=== PATIENT | male | born 1965 | race African-American/Black ===

== ENCOUNTER 2020-09-03 23:28 | Inpatient (IN) ==
[2020-09-04] MEDS ORDERED: SODIUM CHLORIDE 0.9% 1,000 ML IV STA ×2 (07:37→09:07)
[2020-09-04] MEDS ORDERED: ONDANSETRON 4 MG/2 ML VIAL IV STA (07:38)
[2020-09-04] MEDS ORDERED: PIPERACILLIN/TAZOBACTAM 3,375 MG in SODIUM CHLORIDE 0.9% 100 ML IV STA (07:38)
[2020-09-04] MEDS ORDERED: fentaNYL 100 MCG/2 ML VIAL IV STA (07:38)
[2020-09-04 07:55] LABS: Basophils % 0.1 % (0.0-0.8); Hematocrit 24.1 VOL% (42.0-52.0); Hemoglobin 7.9 GM/DL (14.0-18.0); Immature Granulocytes % 1.8 %; Immature Granulocytes Absolute 0.28 #; Lymphocytes # 0.9 10*3/uL (1.4-4.0); Mean Corpuscular HGB Conc 32.8 GM/DL (32-36); Mean Platelet Volume 10.8 FL (9.6-12.0); Monocytes % 10.1 % (1.7-12.7); NRBC # 0.07 10*3/uL; Platelet Count 265 T/CUMM (130-400); Red Blood Count 2.62 MC/CUMM (3.8-5.5); Red Cell Distribution Width 14.5 % (9.3-17.3); White Blood Count 15.7 T/CUMM (4-12)
[2020-09-04] MEDS ORDERED: MEROPENEM 1,000 MG in SODIUM CHLORIDE 0.9% 100 ML IV STA (08:14)
[2020-09-04] MEDS ORDERED: VANCOMYCIN INJ 1,500 MG in SODIUM CHLORIDE 0.9% 500 ML IV STA (08:14)
[2020-09-04] MEDS ORDERED: MEROPENEM 500 MG VIAL ONE (08:20)
[2020-09-04 08:21] LABS: Albumin 2.1 G/DL (3.4-5.0); Bilirubin,Total 0.5 MG/DL (0.2-1.0); Calcium 8.9 MG/DL (8.5-10.1); Osmolality,Calculated 292.5 MOS/KG (273-304); Total Protein 6.8 G/DL (6.4-8.3)
[2020-09-04 08:36] LABS: Hypochromasia 1+; Lymphocytes 6 % (20-55); Platelet Estimate Adequate; Segmented Neutrophils 85 % (50-85); Total Cells Counted 100
[2020-09-04] MEDS ORDERED: ALBUTEROL 2.5 MG/3 ML NEB RESP TX PRN (09:28)
[2020-09-04] MEDS ORDERED: ONDANSETRON 4 MG/2 ML VIAL IV PRN (09:28)
[2020-09-04] MEDS ORDERED: FAMOTIDINE 20 MG/2 ML VIAL IV SCH (09:30)
[2020-09-04] MEDS ORDERED: MIDAZOLAM 2 MG/2 ML VIAL ONE (09:41)
[2020-09-04] MEDS ORDERED: fentaNYL 100 MCG/2 ML VIAL ONE (09:42)
[2020-09-04 09:46] LABS: Bacteria,Urine Occasional /HPF (Few); Bilirubin,Urine Negative (Negative); Blood, Urine Small mg/dL (Negative); Glucose,Urine (UA) Negative (Negative); Ketones,Urine Negative (Negative); Nitrite,Urine Negative (Negative); Protein,Urine >=500 MG/DL; RBC,Urine 9 /HPF (0-4); Squamous Epithelial Cell,Urine Occasional /HPF (0-10); Urine Appearance CLOUDY (Clear); Urine Color Amber (Yellow); Urine Specific Gravity 1.019 (1.001-1.035); Urine Urobilinogen < 2.0 EU/DL (0.2-1.0); WBC,Urine 4 /HPF (0-6)
[2020-09-04] MEDS ORDERED: LACTATED RINGERS 1,000 ML IV SCH (10:00)
[2020-09-04] MEDS ORDERED: PHENYLEPHRINE 10 MG/1 ML VIAL IV ONE ×3 (10:16→11:06)
[2020-09-04] MEDS ORDERED: ePHEDrine 50 MG/ML VIAL ONE (10:24)
[2020-09-04] MEDS ORDERED: SUGAMMADEX 200 MG/2 ML VIAL IV ONE (10:45)
[2020-09-04 10:57] LABS: ABG Base Excess -9.5 MMOL/L (-2.5-2.5); ABG HCO3 16.7 MMOL/L (20-26); ABG Oxygen Saturation 99.9 % (95-100); ABG PCO2 38.6 MM HG (35-48); ABG PH 7.252 (7.35-7.45); ABG TCO2 16.3 MMOL/L (23-27); Glucose Heart Surgery 114 MG/DL (74-106); Hematocrit Heart Surgery 21.1 PERCENT (42-52); Hemoglobin Heart Surgery 6.7 G/DL (14.0-18.0); Potassium Heart/CVR 5.5 MMOL/L (3.5-5.1)
[2020-09-04] MEDS ORDERED: SODIUM CHLORIDE 0.9% 1,000 ML IV PRN (11:09)
[2020-09-04] MEDS ORDERED: ETOMIDATE 40 MG/20 ML VIAL IV ONE (11:41)
[2020-09-04] MEDS ORDERED: ROCURONIUM 50 MG/5 ML VIAL IV ONE ×2 (11:41→11:43)
[2020-09-04] MEDS ORDERED: SUCCINYLCHOLINE 200 MG/10 ML VIAL ONE (11:41)
[2020-09-04] MEDS ORDERED: LIDOCAINE 2% 5 ML VIAL ONE (11:41)
[2020-09-04] MEDS ORDERED: SEVOFLURANE 1 UNIT/15 MINUTE INH ONE (11:42)
[2020-09-04] MEDS ORDERED: PHENYLEPHRINE 1 MG/10 ML SYRINGE IV ONE (11:42)
[2020-09-04] MEDS ORDERED: SODIUM CHLORIDE 0.9% 1,000 ML IV ONE (11:42)
[2020-09-04] MEDS ORDERED: ONDANSETRON 4 MG/2 ML VIAL ONE (11:42)
[2020-09-04] MEDS ORDERED: PHENYLEPHRINE DRIP 40 MG/250 ML PREMIX IV ONE (12:14)
[2020-09-04] MEDS ORDERED: PHENYLEPHRINE DRIP 40 MG/250 ML PREMIX IV PRN (12:15)
[2020-09-04 12:20] LABS: ABG HCO3 16.3 MMOL/L (20-26); ABG Oxygen Saturation 99.8 % (95-100); ABG PH 7.231 (7.35-7.45); ABG TCO2 16.3 MMOL/L (23-27); Glucose Heart Surgery 115 MG/DL (74-106); Hematocrit Heart Surgery 19.4 PERCENT (42-52); Potassium Heart/CVR 5.3 MMOL/L (3.5-5.1)
[2020-09-04 12:21] LABS: Hemoglobin Heart Surgery 6.2 G/DL (14.0-18.0)
[2020-09-04] MEDS ORDERED: VANCOMYCIN INJ 1,250 MG in SODIUM CHLORIDE 0.9% 250 ML IV PRN (12:32)
[2020-09-04] MEDS ORDERED: SODIUM BICARBONATE 50 MEQ/50 ML VIAL IV ONE (13:05)
[2020-09-04] MEDS: FAMOTIDINE 20 MG/2 ML VIAL IV SCH (13:31)
[2020-09-04] MEDS: SODIUM BICARB INJ 150 MEQ in DEXTROSE 5% 850 ML IV SCH (14:17)
[2020-09-04] MEDS: MORPHINE 4 MG/1 ML VIAL IV PRN (20:25)
[2020-09-04 20:46] LABS: Calcium 7.7 MG/DL (8.5-10.1); Osmolality,Calculated 301.2 MOS/KG (273-304)
[2020-09-05] MEDS: SODIUM BICARB INJ 150 MEQ in DEXTROSE 5% 850 ML IV SCH ×2 (00:08→10:03)
[2020-09-05 04:18] LABS: ABG HCO3 20.3 MMOL/L (20-26); ABG Oxygen Saturation 99.6 % (95-100); ABG PCO2 30.9 MM HG (35-48); ABG PH 7.397 (7.35-7.45); ABG TCO2 17.5 MMOL/L (23-27)
[2020-09-05 04:19] LABS: Allen Test Positive; Pt O2 Delivery Device Ventilator
[2020-09-05 04:43] LABS: Basophils % 0.2 % (0.0-0.8); Eosinophils % 0.2 % (0.00-10.9); Hematocrit 23.8 VOL% (42.0-52.0); Hemoglobin 7.8 GM/DL (14.0-18.0); Immature Granulocytes % 0.7 %; Immature Granulocytes Absolute 0.09 #; Lymphocytes # 1.1 10*3/uL (1.4-4.0); Lymphocytes % 9.2 % (21.2-54.2); Mean Corpuscular HGB Conc 32.8 GM/DL (32-36); Mean Corpuscular Volume 90.2 FL (87-102); Mean Platelet Volume 11.5 FL (9.6-12.0); Monocytes % 9.9 % (1.7-12.7); NRBC # 0.12 10*3/uL; Neutrophils % 79.8 % (38.7-73.9); Platelet Count 226 T/CUMM (130-400); Red Blood Count 2.64 MC/CUMM (3.8-5.5); Red Cell Distribution Width 15.7 % (9.3-17.3); White Blood Count 12.1 T/CUMM (4-12)
[2020-09-05 05:00] LABS: Albumin 1.6 G/DL (3.4-5.0); Bilirubin,Total 0.7 MG/DL (0.2-1.0); Calcium 7.9 MG/DL (8.5-10.1); Osmolality,Calculated 302.2 MOS/KG (273-304); Total Protein 5.5 G/DL (6.4-8.3)
[2020-09-05 05:25] LABS: Band Neutrophils 5 % (0-10); Eosinophils 1 % (0-10); Hypochromasia 2+; Lymphocytes 10 % (20-55); Platelet Estimate Normal; Segmented Neutrophils 75 % (50-85); Total Cells Counted 100
[2020-09-05] MEDS: MEROPENEM 500 MG in SODIUM CHLORIDE 0.9% 100 ML IV SCH (09:50)
[2020-09-05] MEDS: FAMOTIDINE 20 MG/2 ML VIAL IV SCH (11:38)
[2020-09-05] MEDS: hydrALAZINE 20 MG/1 ML VIAL IV PRN (12:14)
[2020-09-05] MEDS ORDERED: DEXTROSE 50% 25 GM/50 ML VIAL IV PRN (12:31)
[2020-09-05] MEDS ORDERED: GLUCAGON 1 MG VIAL IM PRN (12:31)
[2020-09-05] MEDS: MORPHINE 4 MG/1 ML VIAL IV PRN ×2 (13:43→23:48)
[2020-09-05] MEDS ORDERED: MORPHINE 4 MG/1 ML VIAL IV ONE (13:47)
[2020-09-05] MEDS ORDERED: SODIUM HYPOCHLORITE 0.25% IRRIG 473 ML BOTTLE ONE (13:50)
[2020-09-05] MEDS: INSULIN REGULAR 100 UNIT/ML SUBCUT SCH ×2 (17:50→23:38)
[2020-09-05] MEDS: METOPROLOL TARTRATE 25 MG TABLET PO SCH (21:35)
[2020-09-06] MEDS: MORPHINE 4 MG/1 ML VIAL IV PRN ×4 (03:38→14:43)
[2020-09-06 04:47] LABS: ABG HCO3 23.6 MMOL/L (20-26); ABG Oxygen Saturation 96.4 % (95-100); ABG PH 7.415 (7.35-7.45); ABG TCO2 20.7 MMOL/L (23-27)
[2020-09-06 05:38] LABS: Basophils % 0.1 % (0.0-0.8); Eosinophils # 0.1 10*3/uL (0.0-0.87); Eosinophils % 0.8 % (0.00-10.9); Hematocrit 24.7 VOL% (42.0-52.0); Hemoglobin 8.4 GM/DL (14.0-18.0); Immature Granulocytes % 2.1 %; Immature Granulocytes Absolute 0.29 #; Lymphocytes # 1.2 10*3/uL (1.4-4.0); Lymphocytes % 8.7 % (21.2-54.2); NRBC # 0.09 10*3/uL; Neutrophils % 80.3 % (38.7-73.9); Platelet Count 289 T/CUMM (130-400); Red Blood Count 2.84 MC/CUMM (3.8-5.5); Red Cell Distribution Width 14.9 % (9.3-17.3); White Blood Count 13.8 T/CUMM (4-12)
[2020-09-06 05:52] LABS: Calcium 8.1 MG/DL (8.5-10.1)
[2020-09-06 05:58] LABS: Band Neutrophils 1 % (0-10); Hypochromasia 1+; Lymphocytes 8 % (20-55); Microcytosis 1+; Ovalocytes Slight; Platelet Estimate Adequate; Segmented Neutrophils 89 % (50-85); Total Cells Counted 100
[2020-09-06] MEDS: INSULIN REGULAR 100 UNIT/ML SUBCUT SCH ×3 (06:02→17:39)
[2020-09-06] MEDS: SODIUM BICARB INJ 150 MEQ in DEXTROSE 5% 850 ML IV SCH (06:39)
[2020-09-06] MEDS ORDERED: fentaNYL 100 MCG/2 ML VIAL ONE (08:01)
[2020-09-06] MEDS ORDERED: MIDAZOLAM 2 MG/2 ML VIAL ONE ×2 (08:01→09:32)
[2020-09-06] MEDS ORDERED: ROCURONIUM 50 MG/5 ML VIAL IV ONE (08:01)
[2020-09-06] MEDS: METOPROLOL TARTRATE 25 MG TABLET PO SCH ×2 (08:25→20:21)
[2020-09-06] MEDS: MEROPENEM 500 MG in SODIUM CHLORIDE 0.9% 100 ML IV SCH (08:25)
[2020-09-06] MEDS ORDERED: SEVOFLURANE 1 UNIT/15 MINUTE INH ONE (09:32)
[2020-09-06] MEDS: hydrALAZINE 20 MG/1 ML VIAL IV PRN (10:52)
[2020-09-06] MEDS ORDERED: VANCOMYCIN INJ 1,250 MG in SODIUM CHLORIDE 0.9% 250 ML IV ONE (11:00)
[2020-09-06] MEDS: FAMOTIDINE 20 MG/2 ML VIAL IV SCH (11:04)
[2020-09-06] MEDS: DEXT 5% NACL 0.45% KCL 20 MEQ 20 MEQ/1,000 ML BAG IV SCH (14:55)
[2020-09-07] MEDS: INSULIN REGULAR 100 UNIT/ML SUBCUT SCH ×4 (00:13→18:16)
[2020-09-07] MEDS: MORPHINE 4 MG/1 ML VIAL IV PRN ×2 (01:48→14:11)
[2020-09-07 04:24] LABS: Basophils % 0.2 % (0.0-0.8); Eosinophils # 0.1 10*3/uL (0.0-0.87); Eosinophils % 0.5 % (0.00-10.9); Hemoglobin 7.8 GM/DL (14.0-18.0); Immature Granulocytes % 4.3 %; Immature Granulocytes Absolute 0.77 #; Lymphocytes # 1.5 10*3/uL (1.4-4.0); Lymphocytes % 8.6 % (21.2-54.2); Mean Corpuscular HGB Conc 33.9 GM/DL (32-36); Mean Corpuscular Volume 87.5 FL (87-102); Mean Platelet Volume 10.9 FL (9.6-12.0); Monocytes % 7.7 % (1.7-12.7); NRBC # 0.11 10*3/uL; Neutrophils % 78.7 % (38.7-73.9); Platelet Count 286 T/CUMM (130-400); Red Blood Count 2.63 MC/CUMM (3.8-5.5); Red Cell Distribution Width 14.6 % (9.3-17.3); White Blood Count 17.9 T/CUMM (4-12)
[2020-09-07 04:26] LABS: ABG Base Excess -1.4 MMOL/L (-2.5-2.5); ABG HCO3 21.1 MMOL/L (20-26); ABG PCO2 29.9 MM HG (35-48); ABG PH 7.466 (7.35-7.45); ABG PO2 108.4 MM HG (80-95); Allen Test Positive; Pt O2 Delivery Device Ventilator
[2020-09-07 04:30] LABS: ABG Oxygen Saturation 98.3 % (95-100)
[2020-09-07 04:50] LABS: Albumin 1.3 G/DL (3.4-5.0); Calcium 8.2 MG/DL (8.5-10.1); Osmolality,Calculated 305.2 MOS/KG (273-304); Total Protein 5.4 G/DL (6.4-8.3)
[2020-09-07 04:58] LABS: Band Neutrophils 2 % (0-10); Lymphocytes 11 % (20-55); Nucleated Red Blood Cells 1 (0-5); Platelet Estimate Adequate; Segmented Neutrophils 80 % (50-85); Total Cells Counted 100
[2020-09-07 04:59] LABS: Hypochromasia 2+; Microcytosis 1+
[2020-09-07] MEDS: METOPROLOL TARTRATE 25 MG TABLET PO SCH ×2 (08:12→22:12)
[2020-09-07] MEDS: MEROPENEM 500 MG in SODIUM CHLORIDE 0.9% 100 ML IV SCH (08:12)
[2020-09-07] MEDS: DEXT 5% NACL 0.45% KCL 20 MEQ 20 MEQ/1,000 ML BAG IV SCH (11:13)
[2020-09-07] MEDS: DEXTROSE 5% NACL 0.45% 1,000 ML IV SCH (11:45)
[2020-09-07] MEDS: FAMOTIDINE 20 MG/2 ML VIAL IV SCH (12:03)
[2020-09-07] MEDS ORDERED: PNEUMOCOCCAL VACCINE (13 VALENT) 0.5 ML SYRINGE IM ONE (13:08)
[2020-09-08] MEDS: INSULIN REGULAR 100 UNIT/ML SUBCUT SCH ×5 (00:02→23:49)
[2020-09-08] MEDS: MORPHINE 4 MG/1 ML VIAL IV PRN ×2 (02:12→09:45)
[2020-09-08 04:42] LABS: Basophils % 0.2 % (0.0-0.8); Eosinophils # 0.2 10*3/uL (0.0-0.87); Eosinophils % 0.7 % (0.00-10.9); Hematocrit 22.1 VOL% (42.0-52.0); Hemoglobin 7.7 GM/DL (14.0-18.0); Immature Granulocytes % 8.7 %; Immature Granulocytes Absolute 1.75 #; Lymphocytes # 2.1 10*3/uL (1.4-4.0); Lymphocytes % 10.5 % (21.2-54.2); Mean Corpuscular HGB Conc 34.8 GM/DL (32-36); Mean Corpuscular Volume 90.9 FL (87-102); Mean Platelet Volume 11.3 FL (9.6-12.0); NRBC # 0.06 10*3/uL; Neutrophils % 72.9 % (38.7-73.9); Platelet Count 289 T/CUMM (130-400); Red Blood Count 2.43 MC/CUMM (3.8-5.5); Red Cell Distribution Width 14.8 % (9.3-17.3); White Blood Count 20.2 T/CUMM (4-12)
[2020-09-08 05:03] LABS: ABG Base Excess -2.3 MMOL/L (-2.5-2.5); ABG HCO3 22.5 MMOL/L (20-26); ABG Oxygen Saturation 98.2 % (95-100); ABG PCO2 37.6 MM HG (35-48); ABG PH 7.382 (7.35-7.45); ABG TCO2 20.3 MMOL/L (23-27); Allen Test Positive; Pt O2 Delivery Device Ventilator
[2020-09-08 05:05] LABS: Calcium 8.1 MG/DL (8.5-10.1)
[2020-09-08 05:54] LABS: Anisocytosis 2+; Band Neutrophils 17 % (0-10); Burr Cells 1+; Eosinophils 1 % (0-10); Lymphocytes 8 % (20-55); Myelocytes 2 %; Platelet Estimate Normal; Poikilocytosis 1+; Segmented Neutrophils 69 % (50-85); Smudge Cells Few; Total Cells Counted 100
[2020-09-08 05:55] LABS: Macrocytosis 1+
[2020-09-08] MEDS: MEROPENEM 500 MG in SODIUM CHLORIDE 0.9% 100 ML IV SCH (08:04)
[2020-09-08] MEDS: METOPROLOL TARTRATE 25 MG TABLET PO SCH ×2 (08:05→20:14)
[2020-09-08] MEDS: FAMOTIDINE 20 MG/2 ML VIAL IV SCH (12:20)
[2020-09-08] MEDS: hydrALAZINE 20 MG/1 ML VIAL IV PRN (13:20)
[2020-09-08] MEDS: DEXTROSE 5% NACL 0.45% 1,000 ML IV SCH (21:12)
[2020-09-09] MEDS: DEXTROSE 5% NACL 0.45% 1,000 ML IV SCH ×2 (00:34→11:53)
[2020-09-09 04:23] LABS: Basophils # 0.1 10*3/uL (0.0-0.2); Basophils % 0.3 % (0.0-0.8); Eosinophils # 0.2 10*3/uL (0.0-0.87); Hematocrit 26.6 VOL% (42.0-52.0); Hemoglobin 8.8 GM/DL (14.0-18.0); Immature Granulocytes % 11.3 %; Immature Granulocytes Absolute 2.09 #; Lymphocytes % 10.5 % (21.2-54.2); Mean Corpuscular HGB Conc 33.1 GM/DL (32-36); Mean Corpuscular Volume 90.5 FL (87-102); Mean Platelet Volume 10.2 FL (9.6-12.0); Monocytes % 7.9 % (1.7-12.7); NRBC # 0.02 10*3/uL; Platelet Count 301 T/CUMM (130-400); Red Blood Count 2.94 MC/CUMM (3.8-5.5); Red Cell Distribution Width 14.8 % (9.3-17.3); White Blood Count 18.5 T/CUMM (4-12)
[2020-09-09 04:43] LABS: Calcium 8.8 MG/DL (8.5-10.1)
[2020-09-09 04:57] LABS: Band Neutrophils 2 % (0-10); Lymphocytes 10 % (20-55); Metamyelocytes 1 %; Platelet Estimate Increased; Segmented Neutrophils 83 % (50-85); Total Cells Counted 100
[2020-09-09 04:58] LABS: Microcytosis Slight; Polychromasia Slight
[2020-09-09 05:04] LABS: ABG Base Excess -4.3 MMOL/L (-2.5-2.5); ABG HCO3 20.9 MMOL/L (20-26); ABG Oxygen Saturation 99.3 % (95-100); ABG PH 7.357 (7.35-7.45); ABG TCO2 19.4 MMOL/L (23-27); Allen Test Positive; Pt O2 Delivery Device Ventilator
[2020-09-09] MEDS: INSULIN REGULAR 100 UNIT/ML SUBCUT SCH ×3 (05:11→18:35)
[2020-09-09] MEDS: METOPROLOL TARTRATE 25 MG TABLET PO SCH ×2 (09:48→20:46)
[2020-09-09] MEDS: MEROPENEM 500 MG in SODIUM CHLORIDE 0.9% 100 ML IV SCH (10:05)
[2020-09-09] MEDS ORDERED: FUROSEMIDE 40 MG/4 ML VIAL IM ONE (12:27)
[2020-09-09] MEDS ORDERED: FUROSEMIDE 40 MG/4 ML VIAL IV ONE (12:55)
[2020-09-09] MEDS: FAMOTIDINE 20 MG/2 ML VIAL IV SCH (12:55)
[2020-09-09] MEDS: MORPHINE 4 MG/1 ML VIAL IV PRN ×2 (17:08→18:37)
[2020-09-09] MEDS: METOCLOPRAMIDE 10 MG/2 ML VIAL IV SCH (18:35)
[2020-09-10] MEDS: INSULIN REGULAR 100 UNIT/ML SUBCUT SCH ×4 (00:40→17:28)
[2020-09-10] MEDS: METOCLOPRAMIDE 10 MG/2 ML VIAL IV SCH ×4 (00:41→18:02)
[2020-09-10 04:23] LABS: Allen Test Positive; Pt O2 Delivery Device Ventilator
[2020-09-10 04:24] LABS: ABG HCO3 19.5 MMOL/L (20-26); ABG PCO2 34.3 MM HG (35-48); ABG TCO2 17.6 MMOL/L (23-27)
[2020-09-10 06:45] LABS: Basophils # 0.1 10*3/uL (0.0-0.2); Basophils % 0.2 % (0.0-0.8); Eosinophils % 0.2 % (0.00-10.9); Hematocrit 24.6 VOL% (42.0-52.0); Hemoglobin 8.3 GM/DL (14.0-18.0); Immature Granulocytes Absolute 1.61 #; Lymphocytes # 1.3 10*3/uL (1.4-4.0); Lymphocytes % 5.5 % (21.2-54.2); Mean Corpuscular HGB Conc 33.7 GM/DL (32-36); Mean Corpuscular Volume 88.5 FL (87-102); Monocytes % 3.2 % (1.7-12.7); NRBC # 0.02 10*3/uL; Neutrophils % 83.9 % (38.7-73.9); Platelet Count 330 T/CUMM (130-400); Red Blood Count 2.78 MC/CUMM (3.8-5.5); Red Cell Distribution Width 14.6 % (9.3-17.3); White Blood Count 22.9 T/CUMM (4-12)
[2020-09-10 07:00] LABS: Calcium 9.3 MG/DL (8.5-10.1); Osmolality,Calculated 312.2 MOS/KG (273-304)
[2020-09-10 07:05] LABS: Calcium 8.6 MG/DL (8.5-10.1); Osmolality,Calculated 317.1 MOS/KG (273-304)
[2020-09-10] MEDS ORDERED: ROPIVACAINE 0.5% 30 ML VIAL ONE (07:09)
[2020-09-10] MEDS: hydrALAZINE 20 MG/1 ML VIAL IV PRN ×2 (07:28→13:07)
[2020-09-10 07:30] LABS: Anisocytosis 2+; Band Neutrophils 1 % (0-10); Hypersegmented Neutrophil 1+; Lymphocytes 5 % (20-55); Macrocytosis 2+; Platelet Estimate Normal; Segmented Neutrophils 91 % (50-85); Total Cells Counted 100
[2020-09-10] MEDS ORDERED: LIDOCAINE 2% TOP JELLY 20 ML VIAL INTRAURETH ONE (08:07)
[2020-09-10] MEDS: MEROPENEM 500 MG in SODIUM CHLORIDE 0.9% 100 ML IV SCH (08:13)
[2020-09-10] MEDS ORDERED: MIDAZOLAM 2 MG/2 ML VIAL ONE (09:00)
[2020-09-10] MEDS ORDERED: fentaNYL 100 MCG/2 ML VIAL ONE (09:00)
[2020-09-10] MEDS ORDERED: ROCURONIUM 50 MG/5 ML VIAL IV ONE (09:33)
[2020-09-10] MEDS ORDERED: propofoL 200 MG/20 ML VIAL IV ONE (09:33)
[2020-09-10] MEDS ORDERED: SEVOFLURANE 1 UNIT/15 MINUTE INH ONE (10:17)
[2020-09-10] MEDS ORDERED: LIDOCAINE 2% 5 ML VIAL ONE (10:17)
[2020-09-10] MEDS: METOPROLOL TARTRATE 25 MG TABLET PO SCH ×3 (11:11→22:05)
[2020-09-10] MEDS: FAMOTIDINE 20 MG/2 ML VIAL IV SCH (11:29)
[2020-09-10] MEDS: MORPHINE 4 MG/1 ML VIAL IV PRN (12:53)
[2020-09-10] MEDS: fentaNYL INJ 1,250 MCG in SODIUM CHLORIDE 0.9% 225 ML IV PRN (12:54)
[2020-09-11] MEDS: INSULIN REGULAR 100 UNIT/ML SUBCUT SCH ×4 (00:13→17:22)
[2020-09-11] MEDS: METOCLOPRAMIDE 10 MG/2 ML VIAL IV SCH ×4 (00:20→21:06)
[2020-09-11] MEDS: fentaNYL INJ 1,250 MCG in SODIUM CHLORIDE 0.9% 225 ML IV PRN ×2 (01:45→15:30)
[2020-09-11 02:54] LABS: ABG Base Excess -6.7 MMOL/L (-2.5-2.5); ABG HCO3 18.5 MMOL/L (20-26); ABG Oxygen Saturation 97.3 % (95-100); ABG PCO2 35.9 MM HG (35-48); ABG PH 7.331 (7.35-7.45); ABG PO2 117.2 MM HG (80-95); ABG TCO2 19.6 MMOL/L (23-27); Allen Test Positive; Pt O2 Delivery Device Ventilator
[2020-09-11] MEDS ORDERED: BUPIVACAINE MPF 0.25% 30 ML VIAL ONE (06:11)
[2020-09-11] MEDS ORDERED: TISSUE ADHESIVE 1 EACH APPLICATOR TOP ONE (06:11)
[2020-09-11] MEDS ORDERED: HEPARIN 5,000 UNIT/1 ML VIAL ONE (06:11)
[2020-09-11] MEDS ORDERED: LIDOCAINE 1%/EPI INJ 20 ML VIAL ONE (06:11)
[2020-09-11] MEDS ORDERED: ROCURONIUM 50 MG/5 ML VIAL IV ONE (06:38)
[2020-09-11] MEDS ORDERED: MIDAZOLAM 2 MG/2 ML VIAL ONE (06:39)
[2020-09-11] MEDS: METOPROLOL TARTRATE 25 MG TABLET PO SCH ×2 (08:09→21:07)
[2020-09-11] MEDS: metroNIDAZOLE INJ 500 MG in PREMIX 1 EACH IV SCH ×2 (08:53→16:55)
[2020-09-11] MEDS: MEROPENEM 500 MG in SODIUM CHLORIDE 0.9% 100 ML IV SCH (08:53)
[2020-09-11 11:33] LABS: Hepatitis B Core IgM Quant < 0.05 Index; Hepatitis B Surface Ag Quant < 0.10 Index; Hepatitis B Surface Ag Result Negative (Negative); Hepatitis C Virus Ab Quant 0.03 Index; Hepatitis C Virus Ab Result Negative (Negative)
[2020-09-11] MEDS: FAMOTIDINE 20 MG/2 ML VIAL IV SCH (12:41)
[2020-09-11] MEDS ORDERED: HEPARIN 10,000 UNIT/10 ML VIAL IV SCH (13:30)
[2020-09-12] MEDS: INSULIN REGULAR 100 UNIT/ML SUBCUT SCH ×4 (00:55→17:34)
[2020-09-12] MEDS: metroNIDAZOLE INJ 500 MG in PREMIX 1 EACH IV SCH ×3 (00:56→17:41)
[2020-09-12 03:24] LABS: ABG Base Excess -6.2 MMOL/L (-2.5-2.5); ABG HCO3 19.5 MMOL/L (20-26); ABG PCO2 39.4 MM HG (35-48); ABG PH 7.313 (7.35-7.45); ABG PO2 145.3 MM HG (80-95); ABG TCO2 20.7 MMOL/L (23-27); Allen Test Positive; Pt O2 Delivery Device Ventilator
[2020-09-12 03:46] LABS: Basophils % 0.2 % (0.0-0.8); Eosinophils # 0.2 10*3/uL (0.0-0.87); Eosinophils % 0.9 % (0.00-10.9); Hematocrit 22.3 VOL% (42.0-52.0); Hemoglobin 7.4 GM/DL (14.0-18.0); Immature Granulocytes % 4.7 %; Immature Granulocytes Absolute 0.96 #; Lymphocytes # 1.9 10*3/uL (1.4-4.0); Lymphocytes % 9.4 % (21.2-54.2); Mean Corpuscular HGB Conc 33.2 GM/DL (32-36); Mean Corpuscular Volume 89.9 FL (87-102); Mean Platelet Volume 9.8 FL (9.6-12.0); Monocytes % 7.2 % (1.7-12.7); Neutrophils % 77.6 % (38.7-73.9); Platelet Count 328 T/CUMM (130-400); Red Blood Count 2.48 MC/CUMM (3.8-5.5); White Blood Count 20.2 T/CUMM (4-12)
[2020-09-12 03:56] LABS: Calcium 8.5 MG/DL (8.5-10.1)
[2020-09-12 04:17] LABS: Band Neutrophils 3 % (0-10); Eosinophils 1 % (0-10); Lymphocytes 7 % (20-55); Microcytosis 1+; Platelet Estimate Adequate; Segmented Neutrophils 83 % (50-85); Total Cells Counted 100
[2020-09-12 04:18] LABS: Hypochromasia 1+
[2020-09-12] MEDS: METOCLOPRAMIDE 10 MG/2 ML VIAL IV SCH ×3 (06:17→22:29)
[2020-09-12] MEDS: fentaNYL INJ 1,250 MCG in SODIUM CHLORIDE 0.9% 225 ML IV PRN (06:30)
[2020-09-12] MEDS: METOPROLOL TARTRATE 25 MG TABLET PO SCH ×2 (09:00→21:02)
[2020-09-12] MEDS: MEROPENEM 500 MG in SODIUM CHLORIDE 0.9% 100 ML IV SCH (09:00)
[2020-09-12] MEDS: MORPHINE 4 MG/1 ML VIAL IV PRN ×4 (09:02→21:21)
[2020-09-12] MEDS: FAMOTIDINE 20 MG/2 ML VIAL IV SCH (12:03)
[2020-09-12] MEDS: hydrALAZINE 20 MG/1 ML VIAL IV PRN ×2 (12:03→18:07)
[2020-09-12] MEDS: HALOPERIDOL 5 MG/ML AMP IM PRN ×2 (17:27→22:31)
[2020-09-12] MEDS: MUPIROCIN 2% OINT 22 GM TUBE TOP SCH ×2 (17:27→21:03)
[2020-09-13] MEDS: INSULIN REGULAR 100 UNIT/ML SUBCUT SCH ×4 (00:02→18:27)
[2020-09-13] MEDS: metroNIDAZOLE INJ 500 MG in PREMIX 1 EACH IV SCH ×3 (00:16→16:36)
[2020-09-13] MEDS: MORPHINE 4 MG/1 ML VIAL IV PRN ×3 (00:17→14:29)
[2020-09-13] MEDS: MUPIROCIN 2% OINT 22 GM TUBE TOP SCH ×4 (04:15→21:28)
[2020-09-13 04:44] LABS: ABG Base Excess -5.7 MMOL/L (-2.5-2.5); ABG Oxygen Saturation 96.4 % (95-100); ABG PCO2 39.8 MM HG (35-48); ABG PH 7.318 (7.35-7.45); ABG PO2 99.9 MM HG (80-95); ABG TCO2 21.2 MMOL/L (23-27); Allen Test Positive
[2020-09-13] MEDS: hydrALAZINE 20 MG/1 ML VIAL IV PRN ×4 (05:12→16:32)
[2020-09-13] MEDS: METOCLOPRAMIDE 10 MG/2 ML VIAL IV SCH ×3 (05:15→21:38)
[2020-09-13 06:22] LABS: Basophils # 0.1 10*3/uL (0.0-0.2); Basophils % 0.3 % (0.0-0.8); Eosinophils # 0.2 10*3/uL (0.0-0.87); Eosinophils % 0.5 % (0.00-10.9); Hematocrit 25.6 VOL% (42.0-52.0); Hemoglobin 8.5 GM/DL (14.0-18.0); Immature Granulocytes % 4.8 %; Immature Granulocytes Absolute 1.38 #; Lymphocytes # 1.4 10*3/uL (1.4-4.0); Lymphocytes % 4.9 % (21.2-54.2); Mean Corpuscular HGB Conc 33.2 GM/DL (32-36); Mean Corpuscular Volume 89.5 FL (87-102); Mean Platelet Volume 9.7 FL (9.6-12.0); Monocytes % 6.5 % (1.7-12.7); Platelet Count 372 T/CUMM (130-400); Red Blood Count 2.86 MC/CUMM (3.8-5.5); Red Cell Distribution Width 14.7 % (9.3-17.3); White Blood Count 28.5 T/CUMM (4-12)
[2020-09-13 07:02] LABS: Anisocytosis 2+; Band Neutrophils 4 % (0-10); Hypersegmented Neutrophil Few; Lymphocytes 3 % (20-55); Metamyelocytes 2 %; Platelet Estimate Normal; Segmented Neutrophils 83 % (50-85); Total Cells Counted 100
[2020-09-13 07:03] LABS: Poikilocytosis Slight; Spherocytes Few
[2020-09-13 07:32] LABS: Calcium 9.2 MG/DL (8.5-10.1)
[2020-09-13 08:37] LABS: Osmolality,Calculated 307.1 MOS/KG (273-304)
[2020-09-13] MEDS: MEROPENEM 500 MG in SODIUM CHLORIDE 0.9% 100 ML IV SCH (09:22)
[2020-09-13] MEDS: METOPROLOL TARTRATE 25 MG TABLET PO SCH ×2 (09:28→21:27)
[2020-09-13] MEDS: cloNIDine 0.3 MG/24 HR PATCH TRANSDERM SCH (11:26)
[2020-09-13] MEDS: FAMOTIDINE 20 MG/2 ML VIAL IV SCH (12:39)
[2020-09-13] MEDS: ALBUTEROL 2.5 MG/3 ML NEB RESP TX SCH ×2 (13:20→19:37)
[2020-09-13] MEDS ORDERED: LABETALOL 20 MG/4 ML SYRINGE IV ONE ×2 (20:12→20:55)
[2020-09-14] MEDS: INSULIN REGULAR 100 UNIT/ML SUBCUT SCH ×4 (00:15→17:25)
[2020-09-14] MEDS: ALBUTEROL 2.5 MG/3 ML NEB RESP TX SCH ×4 (00:58→19:07)
[2020-09-14] MEDS: metroNIDAZOLE INJ 500 MG in PREMIX 1 EACH IV SCH ×3 (02:27→16:40)
[2020-09-14] MEDS: LABETALOL 20 MG/4 ML SYRINGE IV PRN ×2 (02:28→18:10)
[2020-09-14] MEDS ORDERED: LABETALOL 20 MG/4 ML SYRINGE IV ONE (05:38)
[2020-09-14] MEDS: METOCLOPRAMIDE 10 MG/2 ML VIAL IV SCH ×3 (06:05→22:37)
[2020-09-14] MEDS: MORPHINE 4 MG/1 ML VIAL IV PRN ×2 (06:07→17:15)
[2020-09-14 06:36] LABS: Basophils # 0.1 10*3/uL (0.0-0.2); Basophils % 0.3 % (0.0-0.8); Eosinophils # 0.1 10*3/uL (0.0-0.87); Eosinophils % 0.5 % (0.00-10.9); Hematocrit 25.6 VOL% (42.0-52.0); Hemoglobin 8.4 GM/DL (14.0-18.0); Immature Granulocytes % 2.9 %; Immature Granulocytes Absolute 0.64 #; Lymphocytes # 1.3 10*3/uL (1.4-4.0); Lymphocytes % 5.6 % (21.2-54.2); Mean Corpuscular HGB Conc 32.8 GM/DL (32-36); Mean Corpuscular Volume 90.8 FL (87-102); Monocytes % 5.7 % (1.7-12.7); Platelet Count 395 T/CUMM (130-400); Red Blood Count 2.82 MC/CUMM (3.8-5.5); Red Cell Distribution Width 14.8 % (9.3-17.3); White Blood Count 22.5 T/CUMM (4-12)
[2020-09-14 06:56] LABS: Calcium 9.5 MG/DL (8.5-10.1); Osmolality,Calculated 322.5 MOS/KG (273-304)
[2020-09-14] MEDS ORDERED: niCARdipine INJ 50 MG in SODIUM CHLORIDE 0.9% 230 ML IV PRN (09:13)
[2020-09-14] MEDS: MUPIROCIN 2% OINT 22 GM TUBE TOP SCH ×2 (09:50→21:11)
[2020-09-14] MEDS: METOPROLOL TARTRATE 25 MG TABLET PO SCH ×2 (09:50→21:11)
[2020-09-14] MEDS: MEROPENEM 500 MG in SODIUM CHLORIDE 0.9% 100 ML IV SCH (09:53)
[2020-09-14] MEDS: FAMOTIDINE 20 MG/2 ML VIAL IV SCH (12:30)
[2020-09-14] MEDS: HALOPERIDOL 5 MG/ML AMP IM PRN (15:54)
[2020-09-15] MEDS: INSULIN REGULAR 100 UNIT/ML SUBCUT SCH ×5 (00:20→23:41)
[2020-09-15] MEDS: metroNIDAZOLE INJ 500 MG in PREMIX 1 EACH IV SCH ×3 (01:02→16:48)
[2020-09-15] MEDS: MORPHINE 4 MG/1 ML VIAL IV PRN (01:03)
[2020-09-15] MEDS: MUPIROCIN 2% OINT 22 GM TUBE TOP SCH ×3 (01:22→20:46)
[2020-09-15] MEDS: ALBUTEROL 2.5 MG/3 ML NEB RESP TX SCH ×4 (01:42→19:20)
[2020-09-15 04:20] LABS: Basophils # 0.1 10*3/uL (0.0-0.2); Basophils % 0.4 % (0.0-0.8); Eosinophils # 0.2 10*3/uL (0.0-0.87); Eosinophils % 1.1 % (0.00-10.9); Hematocrit 25.9 VOL% (42.0-52.0); Hemoglobin 8.5 GM/DL (14.0-18.0); Immature Granulocytes % 1.3 %; Lymphocytes # 1.1 10*3/uL (1.4-4.0); Lymphocytes % 7.2 % (21.2-54.2); Mean Corpuscular HGB Conc 32.8 GM/DL (32-36); Mean Corpuscular Volume 89.3 FL (87-102); Mean Platelet Volume 10.2 FL (9.6-12.0); Monocytes % 8.7 % (1.7-12.7); Neutrophils % 81.3 % (38.7-73.9); Platelet Count 396 T/CUMM (130-400); Red Cell Distribution Width 14.5 % (9.3-17.3); White Blood Count 15.2 T/CUMM (4-12)
[2020-09-15 04:43] LABS: Calcium 8.8 MG/DL (8.5-10.1); Osmolality,Calculated 301.5 MOS/KG (273-304)
[2020-09-15] MEDS: METOCLOPRAMIDE 10 MG/2 ML VIAL IV SCH ×3 (06:00→22:05)
[2020-09-15] MEDS: METOPROLOL TARTRATE 25 MG TABLET PO SCH ×2 (08:16→20:38)
[2020-09-15] MEDS: MEROPENEM 500 MG in SODIUM CHLORIDE 0.9% 100 ML IV SCH (09:20)
[2020-09-15] MEDS: FAMOTIDINE 20 MG/2 ML VIAL IV SCH (11:59)
[2020-09-15] MEDS: LORazepam 2 MG/1 ML VIAL IV PRN ×2 (14:04→17:01)
[2020-09-15] MEDS: hydrALAZINE 20 MG/1 ML VIAL IV PRN (22:06)
[2020-09-16] MEDS: hydrALAZINE 20 MG/1 ML VIAL IV PRN ×3 (00:23→18:05)
[2020-09-16] MEDS: metroNIDAZOLE INJ 500 MG in PREMIX 1 EACH IV SCH ×3 (00:24→18:05)
[2020-09-16] MEDS: ALBUTEROL 2.5 MG/3 ML NEB RESP TX SCH ×4 (00:50→19:35)
[2020-09-16 04:15] LABS: Basophils # 0.1 10*3/uL (0.0-0.2); Basophils % 0.4 % (0.0-0.8); Eosinophils # 0.3 10*3/uL (0.0-0.87); Eosinophils % 1.6 % (0.00-10.9); Hematocrit 25.3 VOL% (42.0-52.0); Hemoglobin 8.4 GM/DL (14.0-18.0); Immature Granulocytes % 1.4 %; Immature Granulocytes Absolute 0.26 #; Lymphocytes # 1.5 10*3/uL (1.4-4.0); Lymphocytes % 8.2 % (21.2-54.2); Mean Corpuscular HGB Conc 33.2 GM/DL (32-36); Mean Corpuscular Volume 88.8 FL (87-102); Mean Platelet Volume 9.6 FL (9.6-12.0); Monocytes % 10.6 % (1.7-12.7); Neutrophils % 77.8 % (38.7-73.9); Platelet Count 399 T/CUMM (130-400); Red Blood Count 2.85 MC/CUMM (3.8-5.5); Red Cell Distribution Width 14.3 % (9.3-17.3); White Blood Count 18.3 T/CUMM (4-12)
[2020-09-16 04:34] LABS: Band Neutrophils 1 % (0-10); Eosinophils 1 % (0-10); Hypochromasia 1+; Lymphocytes 6 % (20-55); Microcytosis 1+; Platelet Estimate Adequate; Segmented Neutrophils 85 % (50-85); Total Cells Counted 100
[2020-09-16 04:37] LABS: Albumin 1.9 G/DL (3.4-5.0); Bilirubin,Total 0.5 MG/DL (0.2-1.0); Calcium 8.4 MG/DL (8.5-10.1); Osmolality,Calculated 314.5 MOS/KG (273-304); Total Protein 6.7 G/DL (6.4-8.3)
[2020-09-16] MEDS: INSULIN REGULAR 100 UNIT/ML SUBCUT SCH ×3 (06:06→18:08)
[2020-09-16] MEDS: METOCLOPRAMIDE 10 MG/2 ML VIAL IV SCH ×3 (06:06→22:09)
[2020-09-16] MEDS: METOPROLOL TARTRATE 25 MG TABLET PO SCH ×2 (09:04→20:23)
[2020-09-16] MEDS: MEROPENEM 500 MG in SODIUM CHLORIDE 0.9% 100 ML IV SCH (12:51)
[2020-09-16] MEDS: FAMOTIDINE 20 MG/2 ML VIAL IV SCH (12:54)
[2020-09-16] MEDS: MUPIROCIN 2% OINT 22 GM TUBE TOP SCH ×2 (13:30→20:24)
[2020-09-17] MEDS: INSULIN REGULAR 100 UNIT/ML SUBCUT SCH ×5 (00:32→23:54)
[2020-09-17] MEDS: metroNIDAZOLE INJ 500 MG in PREMIX 1 EACH IV SCH ×2 (01:19→10:07)
[2020-09-17] MEDS: ALBUTEROL 2.5 MG/3 ML NEB RESP TX SCH ×4 (01:49→19:31)
[2020-09-17] MEDS: hydrALAZINE 20 MG/1 ML VIAL IV PRN ×2 (03:11→17:00)
[2020-09-17] MEDS: METOCLOPRAMIDE 10 MG/2 ML VIAL IV SCH ×3 (06:08→22:53)
[2020-09-17 06:40] LABS: Basophils # 0.1 10*3/uL (0.0-0.2); Basophils % 0.4 % (0.0-0.8); Eosinophils # 0.3 10*3/uL (0.0-0.87); Eosinophils % 1.6 % (0.00-10.9); Hematocrit 24.7 VOL% (42.0-52.0); Hemoglobin 8.2 GM/DL (14.0-18.0); Immature Granulocytes % 1.3 %; Immature Granulocytes Absolute 0.24 #; Lymphocytes # 1.8 10*3/uL (1.4-4.0); Lymphocytes % 9.7 % (21.2-54.2); Mean Corpuscular HGB Conc 33.2 GM/DL (32-36); Mean Corpuscular Volume 89.2 FL (87-102); Mean Platelet Volume 10.1 FL (9.6-12.0); Platelet Count 439 T/CUMM (130-400); Red Blood Count 2.77 MC/CUMM (3.8-5.5); Red Cell Distribution Width 14.1 % (9.3-17.3)
[2020-09-17 07:01] LABS: Hypochromasia 1+; Microcytosis 1+; Ovalocytes Slight; Platelet Estimate Adequate
[2020-09-17 07:03] LABS: Albumin 1.9 G/DL (3.4-5.0); Bilirubin,Total 0.8 MG/DL (0.2-1.0); Calcium 8.6 MG/DL (8.5-10.1); Osmolality,Calculated 321.5 MOS/KG (273-304); Total Protein 6.9 G/DL (6.4-8.3)
[2020-09-17] MEDS: MUPIROCIN 2% OINT 22 GM TUBE TOP SCH ×2 (10:06→22:53)
[2020-09-17] MEDS: METOPROLOL TARTRATE 25 MG TABLET PO SCH ×2 (10:07→23:01)
[2020-09-17] MEDS: MORPHINE 4 MG/1 ML VIAL IV PRN ×2 (11:50→15:39)
[2020-09-17] MEDS: FAMOTIDINE 20 MG/2 ML VIAL IV SCH (12:50)
[2020-09-17] MEDS: MEROPENEM 500 MG in SODIUM CHLORIDE 0.9% 100 ML IV SCH (12:51)
[2020-09-17] MEDS: LABETALOL 20 MG/4 ML SYRINGE IV PRN (15:39)
[2020-09-17] MEDS ORDERED: niCARdipine INJ 25 MG in SODIUM CHLORIDE 0.9% 240 ML IV PRN (16:12)
[2020-09-18] MEDS: hydrALAZINE 20 MG/1 ML VIAL IV PRN (00:49)
[2020-09-18] MEDS: ALBUTEROL 2.5 MG/3 ML NEB RESP TX SCH ×4 (01:34→19:24)
[2020-09-18] MEDS: INSULIN REGULAR 100 UNIT/ML SUBCUT SCH ×3 (05:10→20:18)
[2020-09-18] MEDS: METOCLOPRAMIDE 10 MG/2 ML VIAL IV SCH ×3 (06:16→21:11)
[2020-09-18 06:34] LABS: Basophils # 0.1 10*3/uL (0.0-0.2); Basophils % 0.5 % (0.0-0.8); Eosinophils # 0.3 10*3/uL (0.0-0.87); Eosinophils % 1.9 % (0.00-10.9); Hematocrit 26.6 VOL% (42.0-52.0); Hemoglobin 8.7 GM/DL (14.0-18.0); Immature Granulocytes % 1.1 %; Immature Granulocytes Absolute 0.19 #; Lymphocytes # 1.5 10*3/uL (1.4-4.0); Lymphocytes % 8.7 % (21.2-54.2); Mean Corpuscular HGB Conc 32.7 GM/DL (32-36); Mean Corpuscular Volume 88.7 FL (87-102); Mean Platelet Volume 9.6 FL (9.6-12.0); Monocytes % 8.3 % (1.7-12.7); Neutrophils % 79.5 % (38.7-73.9); Platelet Count 417 T/CUMM (130-400); Red Cell Distribution Width 14.1 % (9.3-17.3); White Blood Count 17.3 T/CUMM (4-12)
[2020-09-18 06:52] LABS: Eosinophils 3 % (0-10); Hypochromasia 1+; Lymphocytes 11 % (20-55); Microcytosis Slight; Platelet Estimate Adequate; Segmented Neutrophils 78 % (50-85); Total Cells Counted 100
[2020-09-18 07:06] LABS: Bilirubin,Total 0.5 MG/DL (0.2-1.0); Calcium 8.3 MG/DL (8.5-10.1); Osmolality,Calculated 292.2 MOS/KG (273-304); Total Protein 7.1 G/DL (6.4-8.3)
[2020-09-18] MEDS: METOPROLOL TARTRATE 25 MG TABLET PO SCH ×2 (08:17→21:10)
[2020-09-18] MEDS: MUPIROCIN 2% OINT 22 GM TUBE TOP SCH ×2 (08:18→21:10)
[2020-09-18] MEDS: amLODIPine 10 MG TABLET PO SCH (09:00)
[2020-09-18] MEDS: FAMOTIDINE 20 MG/2 ML VIAL IV SCH (12:59)
[2020-09-18] MEDS: MEROPENEM 500 MG in SODIUM CHLORIDE 0.9% 100 ML IV SCH (12:59)
[2020-09-19] MEDS: ALBUTEROL 2.5 MG/3 ML NEB RESP TX SCH ×4 (00:37→18:58)
[2020-09-19] MEDS: INSULIN REGULAR 100 UNIT/ML SUBCUT SCH ×4 (00:48→18:24)
[2020-09-19 05:41] LABS: Basophils # 0.1 10*3/uL (0.0-0.2); Basophils % 0.4 % (0.0-0.8); Eosinophils # 0.3 10*3/uL (0.0-0.87); Hematocrit 24.7 VOL% (42.0-52.0); Hemoglobin 8.2 GM/DL (14.0-18.0); Immature Granulocytes % 0.8 %; Immature Granulocytes Absolute 0.13 #; Lymphocytes # 1.9 10*3/uL (1.4-4.0); Lymphocytes % 11.5 % (21.2-54.2); Mean Corpuscular HGB Conc 33.2 GM/DL (32-36); Mean Corpuscular Volume 88.8 FL (87-102); Mean Platelet Volume 10.2 FL (9.6-12.0); Neutrophils % 76.3 % (38.7-73.9); Platelet Count 412 T/CUMM (130-400); Red Blood Count 2.78 MC/CUMM (3.8-5.5); Red Cell Distribution Width 13.9 % (9.3-17.3); White Blood Count 16.6 T/CUMM (4-12)
[2020-09-19] MEDS: METOCLOPRAMIDE 10 MG/2 ML VIAL IV SCH ×3 (06:00→22:02)
[2020-09-19] MEDS: MORPHINE 4 MG/1 ML VIAL IV PRN ×3 (06:02→17:27)
[2020-09-19 06:28] LABS: Calcium 8.2 MG/DL (8.5-10.1); Osmolality,Calculated 296.1 MOS/KG (273-304)
[2020-09-19] MEDS ORDERED: SUCCINYLCHOLINE 200 MG/10 ML VIAL ONE (06:47)
[2020-09-19] MEDS ORDERED: ROCURONIUM 50 MG/5 ML VIAL IV ONE (06:47)
[2020-09-19] MEDS ORDERED: ETOMIDATE 40 MG/20 ML VIAL IV ONE (06:47)
[2020-09-19] MEDS ORDERED: fentaNYL 100 MCG/2 ML VIAL ONE ×2 (06:48→08:02)
[2020-09-19] MEDS ORDERED: LIDOCAINE 2% 5 ML VIAL ONE (07:26)
[2020-09-19] MEDS ORDERED: ONDANSETRON 4 MG/2 ML VIAL ONE (07:26)
[2020-09-19] MEDS ORDERED: METOPROLOL TARTRATE 5 MG/5 ML VIAL IV ONE (08:14)
[2020-09-19] MEDS ORDERED: SEVOFLURANE 1 UNIT/15 MINUTE INH ONE (08:24)
[2020-09-19] MEDS ORDERED: hydrALAZINE 20 MG/1 ML VIAL IV ONE (08:34)
[2020-09-19] MEDS: MUPIROCIN 2% OINT 22 GM TUBE TOP SCH ×2 (10:04→22:04)
[2020-09-19] MEDS: SODIUM HYPOCHLORITE 0.25% IRRIG 473 ML BOTTLE TOP SCH ×2 (10:04→22:04)
[2020-09-19] MEDS: FAMOTIDINE 20 MG/2 ML VIAL IV SCH (13:35)
[2020-09-19] MEDS: ATORVASTATIN 80 MG TABLET PO SCH ×2 (13:37→13:42)
[2020-09-19] MEDS: allopurinoL 100 MG TABLET PO SCH ×2 (13:37→13:42)
[2020-09-19] MEDS: amLODIPine 10 MG TABLET PO SCH ×2 (13:37→13:42)
[2020-09-19] MEDS: METOPROLOL TARTRATE 25 MG TABLET PO SCH ×2 (13:37→22:02)
[2020-09-19] MEDS: ASPIRIN EC 81 MG TABLET PO SCH ×2 (13:37→13:41)
[2020-09-19] MEDS: MEROPENEM 500 MG in SODIUM CHLORIDE 0.9% 100 ML IV SCH (13:38)
[2020-09-20] MEDS: INSULIN REGULAR 100 UNIT/ML SUBCUT SCH ×4 (01:20→18:46)
[2020-09-20] MEDS: ALBUTEROL 2.5 MG/3 ML NEB RESP TX SCH ×4 (02:00→18:56)
[2020-09-20 05:42] LABS: Basophils # 0.1 10*3/uL (0.0-0.2); Basophils % 0.4 % (0.0-0.8); Eosinophils # 0.4 10*3/uL (0.0-0.87); Hematocrit 26.6 VOL% (42.0-52.0); Hemoglobin 8.7 GM/DL (14.0-18.0); Immature Granulocytes % 0.5 %; Immature Granulocytes Absolute 0.06 #; Lymphocytes # 1.1 10*3/uL (1.4-4.0); Lymphocytes % 9.5 % (21.2-54.2); Mean Corpuscular HGB Conc 32.7 GM/DL (32-36); Mean Corpuscular Volume 90.8 FL (87-102); Mean Platelet Volume 10.1 FL (9.6-12.0); Monocytes % 12.7 % (1.7-12.7); Neutrophils % 73.9 % (38.7-73.9); Platelet Count 392 T/CUMM (130-400); Red Blood Count 2.93 MC/CUMM (3.8-5.5); Red Cell Distribution Width 13.9 % (9.3-17.3); White Blood Count 11.6 T/CUMM (4-12)
[2020-09-20] MEDS: METOCLOPRAMIDE 10 MG/2 ML VIAL IV SCH ×3 (06:23→21:35)
[2020-09-20 06:34] LABS: Calcium 8.2 MG/DL (8.5-10.1); Osmolality,Calculated 280.2 MOS/KG (273-304)
[2020-09-20] MEDS: HYDROmorphone 2 MG/1 ML VIAL IV PRN ×2 (10:12→21:33)
[2020-09-20] MEDS: MUPIROCIN 2% OINT 22 GM TUBE TOP SCH ×2 (11:07→21:34)
[2020-09-20] MEDS: METOPROLOL TARTRATE 25 MG TABLET PO SCH ×2 (11:08→21:31)
[2020-09-20] MEDS: ASPIRIN EC 81 MG TABLET PO SCH (11:08)
[2020-09-20] MEDS: amLODIPine 10 MG TABLET PO SCH (11:08)
[2020-09-20] MEDS: ATORVASTATIN 80 MG TABLET PO SCH (11:08)
[2020-09-20] MEDS: allopurinoL 100 MG TABLET PO SCH (11:08)
[2020-09-20] MEDS: cloNIDine 0.3 MG/24 HR PATCH TRANSDERM SCH (11:09)
[2020-09-20] MEDS: SODIUM HYPOCHLORITE 0.25% IRRIG 473 ML BOTTLE TOP SCH ×2 (11:10→21:34)
[2020-09-20] MEDS: MEROPENEM 500 MG in SODIUM CHLORIDE 0.9% 100 ML IV SCH (15:35)
[2020-09-20] MEDS: FAMOTIDINE 20 MG/2 ML VIAL IV SCH (15:39)
[2020-09-21] MEDS: INSULIN REGULAR 100 UNIT/ML SUBCUT SCH ×4 (01:19→17:05)
[2020-09-21] MEDS: ALBUTEROL 2.5 MG/3 ML NEB RESP TX SCH ×4 (02:00→19:02)
[2020-09-21 04:22] LABS: Basophils # 0.1 10*3/uL (0.0-0.2); Basophils % 0.5 % (0.0-0.8); Eosinophils # 0.4 10*3/uL (0.0-0.87); Eosinophils % 3.7 % (0.00-10.9); Hematocrit 25.6 VOL% (42.0-52.0); Hemoglobin 8.3 GM/DL (14.0-18.0); Immature Granulocytes % 0.7 %; Immature Granulocytes Absolute 0.08 #; Lymphocytes # 1.7 10*3/uL (1.4-4.0); Lymphocytes % 14.8 % (21.2-54.2); Mean Corpuscular HGB Conc 32.4 GM/DL (32-36); Mean Corpuscular Volume 90.1 FL (87-102); Mean Platelet Volume 10.1 FL (9.6-12.0); Monocytes % 14.4 % (1.7-12.7); Neutrophils % 65.9 % (38.7-73.9); Platelet Count 369 T/CUMM (130-400); Red Blood Count 2.84 MC/CUMM (3.8-5.5); Red Cell Distribution Width 13.8 % (9.3-17.3); White Blood Count 11.6 T/CUMM (4-12)
[2020-09-21 04:49] LABS: Calcium 8.1 MG/DL (8.5-10.1); Osmolality,Calculated 286.1 MOS/KG (273-304)
[2020-09-21] MEDS: METOCLOPRAMIDE 10 MG/2 ML VIAL IV SCH ×3 (05:54→21:27)
[2020-09-21] MEDS: amLODIPine 10 MG TABLET PO SCH (09:59)
[2020-09-21] MEDS: MULTIVITAMIN (CENTRUM) TABLET PO SCH (09:59)
[2020-09-21] MEDS: ASPIRIN EC 81 MG TABLET PO SCH (10:00)
[2020-09-21] MEDS: ATORVASTATIN 80 MG TABLET PO SCH (10:00)
[2020-09-21] MEDS: SODIUM HYPOCHLORITE 0.25% IRRIG 473 ML BOTTLE TOP SCH (13:39)
[2020-09-21] MEDS: HYDROmorphone 2 MG/1 ML VIAL IV PRN (13:39)
[2020-09-21] MEDS: MUPIROCIN 2% OINT 22 GM TUBE TOP SCH (13:39)
[2020-09-21] MEDS: MEROPENEM 500 MG in SODIUM CHLORIDE 0.9% 100 ML IV SCH (14:06)
[2020-09-21] MEDS: FAMOTIDINE 20 MG/2 ML VIAL IV SCH (14:08)
[2020-09-21] MEDS: METOPROLOL TARTRATE 25 MG TABLET PO SCH ×2 (15:08→21:29)
[2020-09-21] MEDS: allopurinoL 100 MG TABLET PO SCH (15:08)
[2020-09-22] MEDS: INSULIN REGULAR 100 UNIT/ML SUBCUT SCH ×4 (00:36→17:40)
[2020-09-22] MEDS: MUPIROCIN 2% OINT 22 GM TUBE TOP SCH ×3 (01:00→21:21)
[2020-09-22] MEDS: ALBUTEROL 2.5 MG/3 ML NEB RESP TX SCH ×4 (01:12→19:27)
[2020-09-22] MEDS: SODIUM HYPOCHLORITE 0.25% IRRIG 473 ML BOTTLE TOP SCH ×2 (05:05→09:10)
[2020-09-22] MEDS: METOCLOPRAMIDE 10 MG/2 ML VIAL IV SCH ×3 (06:40→21:23)
[2020-09-22] MEDS: ASPIRIN EC 81 MG TABLET PO SCH (09:07)
[2020-09-22] MEDS: METOPROLOL TARTRATE 25 MG TABLET PO SCH ×2 (09:07→21:23)
[2020-09-22] MEDS: MULTIVITAMIN (CENTRUM) TABLET PO SCH (09:08)
[2020-09-22] MEDS: allopurinoL 100 MG TABLET PO SCH (09:08)
[2020-09-22] MEDS: amLODIPine 10 MG TABLET PO SCH (09:08)
[2020-09-22] MEDS: ATORVASTATIN 80 MG TABLET PO SCH (09:08)
[2020-09-22] MEDS: HYDROmorphone 2 MG/1 ML VIAL IV PRN (10:19)
[2020-09-22] MEDS: FAMOTIDINE 20 MG/2 ML VIAL IV SCH (12:00)
[2020-09-22] MEDS: MEROPENEM 500 MG in SODIUM CHLORIDE 0.9% 100 ML IV SCH (12:01)
[2020-09-23] MEDS: ALBUTEROL 2.5 MG/3 ML NEB RESP TX SCH ×4 (00:56→19:24)
[2020-09-23] MEDS: SODIUM HYPOCHLORITE 0.25% IRRIG 473 ML BOTTLE TOP SCH ×3 (01:19→22:45)
[2020-09-23] MEDS: INSULIN REGULAR 100 UNIT/ML SUBCUT SCH ×4 (01:20→17:35)
[2020-09-23] MEDS: METOCLOPRAMIDE 10 MG/2 ML VIAL IV SCH ×3 (06:01→22:45)
[2020-09-23] MEDS: amLODIPine 10 MG TABLET PO SCH (08:40)
[2020-09-23] MEDS: ATORVASTATIN 80 MG TABLET PO SCH (08:40)
[2020-09-23] MEDS: METOPROLOL TARTRATE 25 MG TABLET PO SCH ×2 (08:40→22:45)
[2020-09-23] MEDS: allopurinoL 100 MG TABLET PO SCH (08:40)
[2020-09-23] MEDS: ASPIRIN EC 81 MG TABLET PO SCH (08:41)
[2020-09-23] MEDS: MULTIVITAMIN (CENTRUM) TABLET PO SCH (08:41)
[2020-09-23] MEDS: MUPIROCIN 2% OINT 22 GM TUBE TOP SCH ×2 (08:41→22:45)
[2020-09-23] MEDS: FAMOTIDINE 20 MG/2 ML VIAL IV SCH (11:57)
[2020-09-23] MEDS: HYDROmorphone 2 MG/1 ML VIAL IV PRN (11:58)
[2020-09-23] MEDS: MEROPENEM 500 MG in SODIUM CHLORIDE 0.9% 100 ML IV SCH (12:00)
[2020-09-24] MEDS: ALBUTEROL 2.5 MG/3 ML NEB RESP TX SCH ×4 (00:10→18:55)
[2020-09-24] MEDS: INSULIN REGULAR 100 UNIT/ML SUBCUT SCH ×4 (00:28→18:03)
[2020-09-24 05:20] LABS: Basophils # 0.1 10*3/uL (0.0-0.2); Basophils % 0.9 % (0.0-0.8); Eosinophils # 0.9 10*3/uL (0.0-0.87); Eosinophils % 7.5 % (0.00-10.9); Hematocrit 24.6 VOL% (42.0-52.0); Hemoglobin 8.1 GM/DL (14.0-18.0); Immature Granulocytes % 0.4 %; Immature Granulocytes Absolute 0.05 #; Lymphocytes # 1.8 10*3/uL (1.4-4.0); Lymphocytes % 16.1 % (21.2-54.2); Mean Corpuscular HGB Conc 32.9 GM/DL (32-36); Mean Corpuscular Volume 89.5 FL (87-102); Mean Platelet Volume 10.3 FL (9.6-12.0); Monocytes % 11.3 % (1.7-12.7); Neutrophils % 63.8 % (38.7-73.9); Platelet Count 427 T/CUMM (130-400); Red Blood Count 2.75 MC/CUMM (3.8-5.5); Red Cell Distribution Width 13.4 % (9.3-17.3); White Blood Count 11.4 T/CUMM (4-12)
[2020-09-24 05:38] LABS: Calcium 8.4 MG/DL (8.5-10.1); Osmolality,Calculated 282.1 MOS/KG (273-304)
[2020-09-24] MEDS: METOCLOPRAMIDE 10 MG/2 ML VIAL IV SCH ×3 (06:12→21:52)
[2020-09-24] MEDS: MUPIROCIN 2% OINT 22 GM TUBE TOP SCH ×3 (08:36→21:51)
[2020-09-24] MEDS: ASPIRIN EC 81 MG TABLET PO SCH (10:14)
[2020-09-24] MEDS: ATORVASTATIN 80 MG TABLET PO SCH (10:14)
[2020-09-24] MEDS: amLODIPine 10 MG TABLET PO SCH (10:14)
[2020-09-24] MEDS: SODIUM HYPOCHLORITE 0.25% IRRIG 473 ML BOTTLE TOP SCH ×2 (10:14→21:51)
[2020-09-24] MEDS: allopurinoL 100 MG TABLET PO SCH (10:14)
[2020-09-24] MEDS: MULTIVITAMIN (CENTRUM) TABLET PO SCH (10:14)
[2020-09-24] MEDS: METOPROLOL TARTRATE 25 MG TABLET PO SCH ×2 (10:14→21:51)
[2020-09-24] MEDS: FAMOTIDINE 20 MG/2 ML VIAL IV SCH (14:18)
[2020-09-24] MEDS: MEROPENEM 500 MG in SODIUM CHLORIDE 0.9% 100 ML IV SCH (14:19)
[2020-09-25] MEDS: INSULIN REGULAR 100 UNIT/ML SUBCUT SCH ×4 (00:53→17:58)
[2020-09-25] MEDS: ALBUTEROL 2.5 MG/3 ML NEB RESP TX SCH ×4 (01:22→19:21)
[2020-09-25] MEDS: METOCLOPRAMIDE 10 MG/2 ML VIAL IV SCH ×3 (05:25→22:05)
[2020-09-25 05:29] LABS: Basophils # 0.2 10*3/uL (0.0-0.2); Basophils % 1.7 % (0.0-0.8); Eosinophils # 0.8 10*3/uL (0.0-0.87); Eosinophils % 6.8 % (0.00-10.9); Hemoglobin 8.3 GM/DL (14.0-18.0); Immature Granulocytes % 0.4 %; Immature Granulocytes Absolute 0.05 #; Lymphocytes # 2.2 10*3/uL (1.4-4.0); Lymphocytes % 18.6 % (21.2-54.2); Mean Corpuscular HGB Conc 33.2 GM/DL (32-36); Mean Corpuscular Volume 89.3 FL (87-102); Mean Platelet Volume 10.2 FL (9.6-12.0); Monocytes % 14.9 % (1.7-12.7); Neutrophils % 57.6 % (38.7-73.9); Platelet Count 446 T/CUMM (130-400); Red Cell Distribution Width 13.5 % (9.3-17.3)
[2020-09-25 05:47] LABS: Calcium 8.1 MG/DL (8.5-10.1); Osmolality,Calculated 266.7 MOS/KG (273-304)
[2020-09-25] MEDS ORDERED: LIDOCAINE 2% 5 ML VIAL ONE (06:17)
[2020-09-25] MEDS ORDERED: ROCURONIUM 50 MG/5 ML VIAL IV ONE (06:17)
[2020-09-25] MEDS ORDERED: ETOMIDATE 40 MG/20 ML VIAL IV ONE (06:17)
[2020-09-25] MEDS ORDERED: propofoL 200 MG/20 ML VIAL IV ONE (06:17)
[2020-09-25] MEDS ORDERED: fentaNYL 100 MCG/2 ML VIAL ONE (06:18)
[2020-09-25] MEDS ORDERED: NEOSTIGMINE 10 MG/10 ML VIAL ONE (07:45)
[2020-09-25] MEDS ORDERED: GLYCOPYRROLATE 0.4 MG/2 ML VIAL ONE ×2 (07:45→08:06)
[2020-09-25] MEDS ORDERED: BACITRACIN OINT 0.9 GM PACK TOP ONE (08:01)
[2020-09-25] MEDS ORDERED: SEVOFLURANE 1 UNIT/15 MINUTE INH ONE (08:08)
[2020-09-25] MEDS: MUPIROCIN 2% OINT 22 GM TUBE TOP SCH ×2 (08:55→20:55)
[2020-09-25] MEDS: SODIUM HYPOCHLORITE 0.25% IRRIG 473 ML BOTTLE TOP SCH ×2 (08:55→20:55)
[2020-09-25] MEDS: METOPROLOL TARTRATE 25 MG TABLET PO SCH ×2 (09:38→20:55)
[2020-09-25] MEDS: amLODIPine 10 MG TABLET PO SCH (09:38)
[2020-09-25] MEDS: MULTIVITAMIN (CENTRUM) TABLET PO SCH (09:38)
[2020-09-25] MEDS: ASPIRIN EC 81 MG TABLET PO SCH (09:38)
[2020-09-25] MEDS: ATORVASTATIN 80 MG TABLET PO SCH (09:38)
[2020-09-25] MEDS: allopurinoL 100 MG TABLET PO SCH (09:39)
[2020-09-25] MEDS: FAMOTIDINE 20 MG/2 ML VIAL IV SCH (12:08)
[2020-09-25] MEDS: MEROPENEM 500 MG in SODIUM CHLORIDE 0.9% 100 ML IV SCH (12:08)
[2020-09-26] MEDS: ALBUTEROL 2.5 MG/3 ML NEB RESP TX SCH ×4 (01:13→19:44)
[2020-09-26] MEDS: INSULIN REGULAR 100 UNIT/ML SUBCUT SCH ×5 (01:14→23:49)
[2020-09-26] MEDS: METOCLOPRAMIDE 10 MG/2 ML VIAL IV SCH (05:21)
[2020-09-26 05:47] LABS: Basophils # 0.2 10*3/uL (0.0-0.2); Basophils % 1.5 % (0.0-0.8); Eosinophils # 0.6 10*3/uL (0.0-0.87); Eosinophils % 4.9 % (0.00-10.9); Hematocrit 23.2 VOL% (42.0-52.0); Hemoglobin 7.7 GM/DL (14.0-18.0); Immature Granulocytes % 0.5 %; Immature Granulocytes Absolute 0.06 #; Lymphocytes # 1.9 10*3/uL (1.4-4.0); Lymphocytes % 16.8 % (21.2-54.2); Mean Corpuscular HGB Conc 33.2 GM/DL (32-36); Mean Corpuscular Volume 87.9 FL (87-102); Mean Platelet Volume 9.7 FL (9.6-12.0); Monocytes % 11.9 % (1.7-12.7); Neutrophils % 64.4 % (38.7-73.9); Platelet Count 434 T/CUMM (130-400); Red Blood Count 2.64 MC/CUMM (3.8-5.5); Red Cell Distribution Width 13.6 % (9.3-17.3); White Blood Count 11.5 T/CUMM (4-12)
[2020-09-26 06:34] LABS: Calcium 8.4 MG/DL (8.5-10.1); Osmolality,Calculated 268.7 MOS/KG (273-304)
[2020-09-26] MEDS: amLODIPine 10 MG TABLET PO SCH (09:00)
[2020-09-26] MEDS: METOPROLOL TARTRATE 25 MG TABLET PO SCH ×2 (09:00→22:04)
[2020-09-26] MEDS: MULTIVITAMIN (CENTRUM) TABLET PO SCH (09:01)
[2020-09-26] MEDS: ASPIRIN EC 81 MG TABLET PO SCH (09:01)
[2020-09-26] MEDS: MUPIROCIN 2% OINT 22 GM TUBE TOP SCH ×2 (09:01→22:04)
[2020-09-26] MEDS: allopurinoL 100 MG TABLET PO SCH (09:01)
[2020-09-26] MEDS: ATORVASTATIN 80 MG TABLET PO SCH (09:01)
[2020-09-26] MEDS: SODIUM HYPOCHLORITE 0.25% IRRIG 473 ML BOTTLE TOP SCH ×2 (09:02→23:49)
[2020-09-26] MEDS: FAMOTIDINE 20 MG/2 ML VIAL IV SCH (12:06)
[2020-09-26] MEDS: SULFAMETHOX/TRIMETHOPRIM 800-160 MG TABLET PO SCH ×2 (12:06→22:04)
[2020-09-27] MEDS: ALBUTEROL 2.5 MG/3 ML NEB RESP TX SCH ×4 (00:07→20:25)
[2020-09-27] MEDS: INSULIN REGULAR 100 UNIT/ML SUBCUT SCH ×3 (06:41→17:05)
[2020-09-27] MEDS: ASPIRIN EC 81 MG TABLET PO SCH (08:23)
[2020-09-27] MEDS: amLODIPine 10 MG TABLET PO SCH (08:23)
[2020-09-27] MEDS: ATORVASTATIN 80 MG TABLET PO SCH (08:24)
[2020-09-27] MEDS: METOPROLOL TARTRATE 25 MG TABLET PO SCH ×2 (08:24→21:56)
[2020-09-27] MEDS: allopurinoL 100 MG TABLET PO SCH (08:24)
[2020-09-27] MEDS: SULFAMETHOX/TRIMETHOPRIM 800-160 MG TABLET PO SCH ×2 (08:25→21:56)
[2020-09-27] MEDS: MULTIVITAMIN (CENTRUM) TABLET PO SCH (08:26)
[2020-09-27] MEDS: MUPIROCIN 2% OINT 22 GM TUBE TOP SCH ×2 (08:27→21:57)
[2020-09-27] MEDS: SODIUM HYPOCHLORITE 0.25% IRRIG 473 ML BOTTLE TOP SCH ×2 (08:27→22:01)
[2020-09-27] MEDS: cloNIDine 0.3 MG/24 HR PATCH TRANSDERM SCH (10:50)
[2020-09-27] MEDS: FAMOTIDINE 20 MG/2 ML VIAL IV SCH (11:16)
[2020-09-28] MEDS: INSULIN REGULAR 100 UNIT/ML SUBCUT SCH ×3 (00:04→13:43)
[2020-09-28] MEDS: ALBUTEROL 2.5 MG/3 ML NEB RESP TX SCH ×3 (00:49→12:05)
[2020-09-28] MEDS: METOPROLOL TARTRATE 25 MG TABLET PO SCH (13:41)
[2020-09-28] MEDS: ASPIRIN EC 81 MG TABLET PO SCH (13:41)
[2020-09-28] MEDS: FAMOTIDINE 20 MG/2 ML VIAL IV SCH (13:41)
[2020-09-28] MEDS: SULFAMETHOX/TRIMETHOPRIM 800-160 MG TABLET PO SCH (13:41)
[2020-09-28] MEDS: ATORVASTATIN 80 MG TABLET PO SCH (13:42)
[2020-09-28] MEDS: allopurinoL 100 MG TABLET PO SCH (13:42)
[2020-09-28] MEDS: MULTIVITAMIN (CENTRUM) TABLET PO SCH (13:42)
[2020-09-28] MEDS: amLODIPine 10 MG TABLET PO SCH (13:42)
[2020-09-28] MEDS: MUPIROCIN 2% OINT 22 GM TUBE TOP SCH (13:42)
[2020-09-28] MEDS: SODIUM HYPOCHLORITE 0.25% IRRIG 473 ML BOTTLE TOP SCH (13:42)
[2020-09-28 16:37] VITALS: BP 139/73
== END 2020-09-28 16:11 | DRG 717 ==
LOC: N.ED 23:28 → N.EDINP 09-04 09:28 → SUATTDRO 09-04 09:28 → N.EDINP 09-04 09:39 → N.CC 09-04 11:54 → N.ICU 09-07 06:28 → N.TELES 09-18 15:08
PROVIDERS: ADMIT Family Medicine; ATTEND Emergency Medicine

== ENCOUNTER 2021-03-05 09:46 | Observation (INO) ==
[2021-03-05 10:30] LABS: Basophils # 0.1 10*3/uL (0.0-0.2); Basophils % 0.2 % (0.0-0.8); Eosinophils # 0.1 10*3/uL (0.0-0.87); Eosinophils % 0.2 % (0.00-10.9); Hematocrit 26.4 VOL% (42.0-52.0); Hemoglobin 8.5 GM/DL (14.0-18.0); Immature Granulocytes % 6.3 %; Immature Granulocytes Absolute 1.76 #; Lymphocytes # 1.5 10*3/uL (1.4-4.0); Lymphocytes % 5.5 % (21.2-54.2); Mean Corpuscular HGB Conc 32.2 GM/DL (32-36); Mean Platelet Volume 9.9 FL (9.6-12.0); Monocytes % 5.3 % (1.7-12.7); NRBC # 0.02 10*3/uL; Neutrophils % 82.5 % (38.7-73.9); Platelet Count 433 T/CUMM (130-400); Red Blood Count 2.81 MC/CUMM (3.8-5.5); Red Cell Distribution Width 17.8 % (9.3-17.3); White Blood Count 28.1 T/CUMM (4-12)
[2021-03-05 10:54] LABS: Lymphocytes 5 % (20-55); Segmented Neutrophils 87 % (50-85); Total Cells Counted 100
[2021-03-05 10:55] LABS: Hypochromasia 1+; Microcytosis 1+; Platelet Estimate Adequate
[2021-03-05] MEDS ORDERED: PIPERACILLIN/TAZOBACTAM 3,375 MG in SODIUM CHLORIDE 0.9% 100 ML IV STA (10:58)
[2021-03-05 10:59] LABS: Calcium 8.4 MG/DL (8.5-10.1); Osmolality,Calculated 289.1 MOS/KG (273-304); Potassium 4.7 MMOL/L (3.5-5.1)
[2021-03-05] MEDS ORDERED: ONDANSETRON 4 MG/2 ML VIAL IV PRN (11:57)
[2021-03-05] MEDS ORDERED: ACETAMINOPHEN 325 MG TABLET PO PRN (11:57)
[2021-03-05] MEDS ORDERED: SODIUM CHLORIDE 0.9% 1,000 ML IV SCH (12:00)
[2021-03-05] MEDS ORDERED: NON-FORMULARY MEDICATION (Sildenafil 100 mg tablet) PO PRN (14:48)
[2021-03-05] MEDS ORDERED: traMADol 50 MG TABLET PO PRN (14:49)
[2021-03-05] MEDS: hydrALAZINE 25 MG TABLET PO SCH (15:54)
[2021-03-05] MEDS ORDERED: MELATONIN 3 MG TABLET PO PRN (17:04)
[2021-03-05] MEDS: METOPROLOL TARTRATE 100 MG TABLET PO SCH (17:10)
[2021-03-05 18:53] LABS: Amorphous Crystals,Urine Occasional /HPF (Few); Bacteria,Urine Occasional /HPF (Few); Bilirubin,Urine Negative (Negative); Blood, Urine Small mg/dL (Negative); Glucose,Urine (UA) Negative (Negative); Hyaline Casts,Urine 3 /LPF (0-3); Ketones,Urine Negative (Negative); Nitrite,Urine Negative (Negative); Protein,Urine >=500 MG/DL; Squamous Epithelial Cell,Urine Occasional /HPF (0-10); Urine Appearance CLOUDY (Clear); Urine Color Yellow (Yellow); Urine Specific Gravity 1.017 (1.001-1.035); Urine Urobilinogen < 2.0 EU/DL (0.2-1.0)
[2021-03-05] MEDS ORDERED: ATORVASTATIN 80 MG TABLET PO SCH (21:00)
[2021-03-05] MEDS ORDERED: AMITRIPTYLINE 25 MG TABLET PO SCH (21:00)
[2021-03-05] MEDS: MORPHINE 4 MG/1 ML VIAL IV PRN (22:06)
[2021-03-05] MEDS: DOCUSATE SODIUM 100 MG CAPSULE PO SCH (22:11)
[2021-03-06] MEDS ORDERED: PIPERACILLIN/TAZOBACTAM 3,375 MG in SODIUM CHLORIDE 0.9% 100 ML IV SCH
[2021-03-06] MEDS: hydrALAZINE 25 MG TABLET PO SCH ×2 (01:36→08:47)
[2021-03-06] MEDS: MORPHINE 4 MG/1 ML VIAL IV PRN (02:21)
[2021-03-06 06:53] LABS: Basophils # 0.1 10*3/uL (0.0-0.2); Basophils % 0.2 % (0.0-0.8); Hemoglobin 8.3 GM/DL (14.0-18.0); Immature Granulocytes % 8.5 %; Immature Granulocytes Absolute 1.96 #; Lymphocytes # 1.3 10*3/uL (1.4-4.0); Lymphocytes % 5.7 % (21.2-54.2); Mean Corpuscular HGB Conc 31.9 GM/DL (32-36); Mean Corpuscular Volume 94.5 FL (87-102); Mean Platelet Volume 10.1 FL (9.6-12.0); Monocytes % 5.1 % (1.7-12.7); NRBC # 0.04 10*3/uL; Neutrophils % 80.5 % (38.7-73.9); Platelet Count 385 T/CUMM (130-400); Red Blood Count 2.75 MC/CUMM (3.8-5.5); White Blood Count 23.1 T/CUMM (4-12)
[2021-03-06 07:11] LABS: Albumin 2.7 G/DL (3.4-5.0); Osmolality,Calculated 286.2 MOS/KG (273-304); Total Protein 7.4 G/DL (6.4-8.2)
[2021-03-06 07:18] LABS: Band Neutrophils 5 % (0-10); Hypochromasia 1+; Lymphocytes 3 % (20-55); Microcytosis 1+; Platelet Estimate Adequate; Segmented Neutrophils 87 % (50-85); Total Cells Counted 100
[2021-03-06] MEDS: METOPROLOL TARTRATE 100 MG TABLET PO SCH (08:47)
[2021-03-06] MEDS: DOCUSATE SODIUM 100 MG CAPSULE PO SCH (08:47)
[2021-03-06] MEDS ORDERED: allopurinoL 100 MG TABLET PO SCH (09:00)
[2021-03-06] MEDS ORDERED: PANTOPRAZOLE 40 MG TABLET PO SCH (09:00)
[2021-03-06] MEDS ORDERED: amLODIPine 10 MG TABLET PO SCH (09:00)
[2021-03-06 11:10] VITALS: BP 107/63
== END 2021-03-06 13:45 | disposition home or self-care (01) ==
LOC: N.ED 09:46 → INTOOBSV 11:56 → N.EDINP 11:56 → N.3E 15:11
PROVIDERS: ADMIT Family Medicine; ATTEND Family Medicine